=== PATIENT | female | born 1975 | race Caucasian/White ===

== ENCOUNTER → 2023-11-29 10:41 | Outpatient (CLI) | payer OTHER, MEDICAID, SELFPAY ==
[2023-11-29 21:39] LABS: Add Manual Diff / Slide Review NO; Basophils Absolute Auto 0 /uL (0-100); Basophils Percent Auto 0.4 % (0-2); Eosinophils Absolute Auto 0 /uL (0-450); Eosinophils Percent Auto 0.8 % (2-4); Hemoglobin 15.2 g/dL (12.0-16.0); Lymphocytes Absolute Auto 1100 /uL (1100-4500); Lymphocytes Percent Auto 18.5 % (25-40); Mean Corpuscular HGB Conc 34.5 % (30-36); Mean Corpuscular Hemoglobin 31.7 PG (26-34); Mean Corpuscular Volume 91.9 fL (80-100); Monocytes Absolute Auto 500 /uL (0-900); Monocytes Percent Auto 8.2 % (3-14); Neutrophils Absolute Auto 4200 /uL (1500-7000); Neutrophils Percent Auto 72.1 % (50-75); Platelet Count 248 X10^3/uL (150-400); Red Blood Cell Count 4.79 X10^6/uL (4.0-5.2); Red Cell Distribution Width 12.8 % (11.6-14.8); White Blood Cell Count 5.8 X10^3/uL (4.5-11.0)
[2023-11-29 21:55] LABS: Vitamin D 25 Hydroxy (D3) 31.3 ng/mL (30.0-100.0)
[2023-11-29 22:46] LABS: HEMOLYSIS < 15 (0-50); Iron 184 ug/dL (37-170)
[2023-11-29 22:50] LABS: Alanine Aminotransferase 17 IU/L (<35); Albumin 4.3 g/dL (3.5-5.0); Albumin Globulin Ratio 1.4 (1.0-2.8); Alkaline Phosphatase 44 U/L (38-126); Aspartate Aminotransferase 25 IU/L (14-36); BUN Creatinine Ratio 14.7 (6-22); Bilirubin Total 1.1 mg/dL (0.2-1.3); Blood Urea Nitrogen 10 mg/dL (7-17); Calcium 9.8 mg/dL (8.4-10.2); Carbon Dioxide 25 mmol/L (22-32); Chloride 104 mmol/L (98-107); Cholesterol 171 mg/dL (140-199); Estimated Glomerular Filt Rate > 60 mL/min (>60); Globulin 3.1 g/dL (1.7-4.1); Glucose 90 mg/dL (70-100); HDL Cholesterol 68 mg/dL (40-60); HEMOLYSIS < 15 (0-50); LDL Cholesterol Calculated 91 mg/dL (<100); Sodium 137 mmol/L (137-145); Total Protein 7.4 g/dL (6.3-8.2); Triglycerides 58 mg/dL (35-150)
[2023-11-29 22:58] LABS: Percent Iron Saturation 60 % (15-50); Total Iron Binding Capacity 307 ug/dL (265-497); Transferrin 259 mg/dL (206-381)
[2023-11-29 23:20] LABS: TSH w/ Reflex to FT4 0.75 uIU/mL (0.47-4.68)
[2023-11-29 23:27] LABS: Ferritin 40 ng/mL (11-264)
[2023-11-29 23:41] LABS: Vitamin B12 548 pg/mL (239-931)
== END ==
PROVIDERS: PCP Family Medicine; Visit Provider Physician Assistant
DX: Z13.6 Encounter for screening for cardiovascular disorders (principal); D64.9 Anemia, unspecified; R00.0 Tachycardia, unspecified; R53.83 Other fatigue; Z92.21 Personal history of antineoplastic chemotherapy
CPT/HCPCS: 80053; 80061; 82306; 82607; 82728; 83540; 83550; 84443; 85025

== ENCOUNTER → 2024-04-23 09:43 | Outpatient (CLI) | payer SELFPAY ==
[2024-04-23 19:22] LABS: Add Manual Diff / Slide Review NO; Basophils Absolute Auto 0 /uL (0-100); Basophils Percent Auto 1.2 % (0-2); Eosinophils Absolute Auto 100 /uL (0-450); Eosinophils Percent Auto 1.5 % (2-4); Hematocrit 42.8 % (36-46); Hemoglobin 14.6 g/dL (12.0-16.0); Lymphocytes Absolute Auto 1000 /uL (1100-4500); Lymphocytes Percent Auto 27.2 % (25-40); Mean Corpuscular HGB Conc 34.1 % (30-36); Mean Corpuscular Hemoglobin 31.4 PG (26-34); Mean Corpuscular Volume 91.9 fL (80-100); Monocytes Absolute Auto 300 /uL (0-900); Monocytes Percent Auto 8.3 % (3-14); Neutrophils Absolute Auto 2200 /uL (1500-7000); Neutrophils Percent Auto 61.8 % (50-75); Platelet Count 236 X10^3/uL (150-400); Red Blood Cell Count 4.66 X10^6/uL (4.0-5.2); Red Cell Distribution Width 12.9 % (11.6-14.8); White Blood Cell Count 3.5 X10^3/uL (4.5-11.0)
[2024-04-23 19:28] LABS: HEMOLYSIS 26 (0-50); Iron 178 ug/dL (37-170)
[2024-04-23 19:32] LABS: Alanine Aminotransferase 14 IU/L (<35); Albumin 4.2 g/dL (3.5-5.0); Albumin Globulin Ratio 1.4 (1.0-2.8); Alkaline Phosphatase 46 U/L (38-126); Aspartate Aminotransferase 28 IU/L (14-36); BUN Creatinine Ratio 15.2 (6-22); Blood Urea Nitrogen 10 mg/dL (7-17); Carbon Dioxide 27 mmol/L (22-32); Chloride 105 mmol/L (98-107); Cholesterol 163 mg/dL (140-199); Estimated Glomerular Filt Rate > 60 mL/min (>60); Glucose 97 mg/dL (70-100); HDL Cholesterol 69 mg/dL (40-60); HEMOLYSIS 24 (0-50); LDL Cholesterol Calculated 84 mg/dL (<100); Potassium 3.9 mmol/L (3.4-5.1); Sodium 137 mmol/L (137-145); Total Protein 7.2 g/dL (6.3-8.2); Triglycerides 50 mg/dL (35-150)
[2024-04-23 19:41] LABS: Percent Iron Saturation 57 % (15-50); Total Iron Binding Capacity 311 ug/dL (265-497); Transferrin 236 mg/dL (206-381)
[2024-04-23 19:51] LABS: Free T4, Direct Thyroxine 1.03 ng/dL (0.78-2.19)
[2024-04-23 20:05] LABS: Thyroid Stimulating Hormone 0.674 uIU/mL (0.47-4.68)
[2024-04-23 20:08] LABS: Ferritin 36 ng/mL (11-264)
[2024-04-23 20:31] LABS: Vitamin D 25 Hydroxy (D3) 39.3 ng/mL (30.0-100.0)
[2024-04-23 20:40] LABS: Folate 10.3 ng/mL (2.76-20.0); Vitamin B12 450 pg/mL (239-931)
== END ==
PROVIDERS: PCP Family Medicine
DX: E61.1 Iron deficiency (principal); M25.9 Joint disorder, unspecified; R53.83 Other fatigue; E55.9 Vitamin D deficiency, unspecified; N95.1 Menopausal and female climacteric states; R63.5 Abnormal weight gain
CPT/HCPCS: 80053; 80061; 82306; 82607; 82728; 82746; 83036; 83540; 83550; 84402; 84403; 84439; 84443; 85025

== ENCOUNTER → 2024-09-03 13:39 | Outpatient (CLI) | payer OTHER, SELFPAY ==
[2024-09-03 20:39] LABS: Add Manual Diff / Slide Review NO; Basophils Absolute Auto 0 /uL (0-100); Basophils Percent Auto 0.4 % (0-2); Eosinophils Absolute Auto 0 /uL (0-450); Eosinophils Percent Auto 0.8 % (2-4); Hematocrit 43.7 % (36-46); Hemoglobin 14.9 g/dL (12.0-16.0); Lymphocytes Absolute Auto 1300 /uL (1100-4500); Lymphocytes Percent Auto 20.6 % (25-40); Mean Corpuscular HGB Conc 34.2 % (30-36); Mean Corpuscular Hemoglobin 31.7 PG (26-34); Mean Corpuscular Volume 92.9 fL (80-100); Monocytes Absolute Auto 500 /uL (0-900); Monocytes Percent Auto 8.8 % (3-14); Neutrophils Absolute Auto 4300 /uL (1500-7000); Neutrophils Percent Auto 69.4 % (50-75); Platelet Count 262 X10^3/uL (150-400); Red Cell Distribution Width 13.2 % (11.6-14.8); White Blood Cell Count 6.2 X10^3/uL (4.5-11.0)
[2024-09-03 21:04] LABS: Free T4, Direct Thyroxine 1.07 ng/dL (0.78-2.19)
[2024-09-03 21:18] LABS: Thyroid Stimulating Hormone 0.928 uIU/mL (0.47-4.68)
== END ==
PROVIDERS: PCP Family Medicine; Visit Provider Internal Medicine Infectious Disease
DX: R79.89 Other specified abnormal findings of blood chemistry (principal); R53.83 Other fatigue
CPT/HCPCS: 84439; 84443; 85025

== ENCOUNTER → 2025-06-10 10:54 | Outpatient (CLI) | payer OTHER, SELFPAY ==
[2025-06-10 19:46] LABS: Add Manual Diff / Slide Review NO; Hematocrit 43.7 % (36-46); Hemoglobin 15.2 g/dL (12.0-16.0); Lymphocytes Absolute Auto 1000 /uL (1100-4500); Mean Corpuscular HGB Conc 34.7 % (30-36); Mean Corpuscular Hemoglobin 31.6 PG (26-34); Mean Corpuscular Volume 91.0 fL (80-100); Platelet Count 247 X10^3/uL (150-400)
[2025-06-10 20:16] LABS: Blood Urea Nitrogen 13 mg/dL (7-17); Calcium 10.3 mg/dL (8.4-10.2); Carbon Dioxide 28 mmol/L (22-32); Chloride 100 mmol/L (98-107); Cholesterol 194 mg/dL (140-199); Estimated Glomerular Filt Rate > 60 mL/min (>60); Glucose 98 mg/dL (70-99); HDL Cholesterol 78 mg/dL (40-60); HEMOLYSIS < 15 (0-50); Potassium 4.0 mmol/L (3.4-5.1); Sodium 138 mmol/L (137-145); Triglycerides 68 mg/dL (35-150)
[2025-06-10 20:43] LABS: TSH w/ Reflex to FT4 0.53 uIU/mL (0.47-4.68)
== END ==
PROVIDERS: PCP Family Medicine; Visit Provider Family Medicine
DX: R00.2 Palpitations (principal); Z13.6 Encounter for screening for cardiovascular disorders; R53.83 Other fatigue; Z85.3 Personal history of malignant neoplasm of breast; Z83.49 Family history of other endocrine, nutritional and metabolic diseases; R79.0 Abnormal level of blood mineral; Z79.890 Hormone replacement therapy; Z92.21 Personal history of antineoplastic chemotherapy; D75.1 Secondary polycythemia
CPT/HCPCS: 80048; 80061; 84443; 85025

== ENCOUNTER → 2025-10-14 09:49 | Outpatient (CLI) | payer OTHER, MEDICAID, SELFPAY ==
[2025-10-14 18:50] LABS: Add Manual Diff / Slide Review NO; Hematocrit 43.0 % (36-46); Hemoglobin 14.8 g/dL (12.0-16.0); Lymphocytes Absolute Auto 1000 /uL (1100-4500); Mean Corpuscular HGB Conc 34.5 % (30-36); Mean Corpuscular Hemoglobin 30.9 PG (26-34); Mean Corpuscular Volume 89.5 fL (80-100); Platelet Count 258 X10^3/uL (150-400)
[2025-10-14 18:59] LABS: HEMOLYSIS 22 (0-50); Iron 160 ug/dL (37-170)
[2025-10-14 19:00] LABS: Blood Urea Nitrogen 11 mg/dL (7-17); Calcium 10.5 mg/dL (8.4-10.2); Carbon Dioxide 29 mmol/L (22-32); Chloride 102 mmol/L (98-107); Cholesterol 207 mg/dL (140-199); Estimated Glomerular Filt Rate > 60 mL/min (>60); Glucose 93 mg/dL (70-99); HDL Cholesterol 83 mg/dL (40-60); HEMOLYSIS 31 (0-50); Potassium 4.0 mmol/L (3.4-5.1); Sodium 141 mmol/L (137-145); Triglycerides 70 mg/dL (35-150)
[2025-10-14 19:16] LABS: Percent Iron Saturation 51 % (15-50); Total Iron Binding Capacity 314 ug/dL (265-497); Transferrin 261 mg/dL (206-381)
[2025-10-14 19:37] LABS: TSH w/ Reflex to FT4 1.09 uIU/mL (0.47-4.68)
[2025-10-14 19:57] LABS: Vitamin B12 593 pg/mL (239-931)
== END ==
PROVIDERS: PCP Family Medicine; Visit Provider Family Medicine
DX: Z13.1 Encounter for screening for diabetes mellitus (principal); R79.0 Abnormal level of blood mineral; N95.1 Menopausal and female climacteric states; N39.0 Urinary tract infection, site not specified; Z79.890 Hormone replacement therapy; Z83.49 Family history of other endocrine, nutritional and metabolic diseases
CPT/HCPCS: 80048; 80061; 82607; 83540; 83550; 84443; 85025; 87086